=== PATIENT | male | born 1960 | race Caucasian/White ===

== ENCOUNTER 2021-08-15 19:59 | Emergency (ER) | payer BC ==
[~2021-08-15] VITALS: Ht 177.8 cm; Wt 100.0 kg
[2021-08-15] MEDS: HYDROmorphone 2 MG/ML INJ. IVP ONE (21:51)
[2021-08-15] MEDS: fentaNYL PF VIAL 100 MCG/2 ML VIAL IVP ONE (22:08)
[2021-08-15] MEDS: IV NORMAL SALINE 1000ML BAG 1,000 ML IV ONE (22:10)
--- NOTE | 2021-08-15 22:16 | RAD ---
Exam: Left shoulder 2 views INDICATION: Fall TECHNIQUE: Frontal view of the left shoulder with internal and external rotation. Comparisons: None FINDINGS: Anterior dislocation of the right shoulder. Bone mineralization is normal. No acute fractures. Soft t issues are unremarkable. IMPRESSION: Anterior dislocation at the right glenohumeral joint. Electronically signed by: Mario Mercado MD (08/15/2021 10:14 PM) FILEMON
[2021-08-15 22:17] VITALS: BP 174/82
--- NOTE | 2021-08-15 22:35 | PHYS DOC ---
General Adult EDM: Chief Complaint: SHOULDER INJURY HPI: HPI: History obtained from patient and daughter. Patient is a 60-year-old male with past medical history significant for hypertension, hyperlipidemia who presents with chief complaint of left shoulder injury. He states approximate 2 hours prior to arrival he fell at home. He notes he fell on an outstretched left arm. States he has deformity to his left shoulder and constant sharp pain. States it is worse with palpation. States it is difficult for him to move his arm due to pain. Denies numbness or tingling. Denies any his head or LOC. No medicine prior to arrival. Last ate 2 hours prior to arrival Review of Systems: Review of Systems: Constitutional: Denies fever or chills. [] Eyes: Denies change in visual acuity. [] HENT: Denies nasal congestion or sore throat. [] Respiratory: Denies cough or shortness of breath. [] Cardiovascular: Denies chest pain or edema. [] GI: Denies abdominal pain, nausea, vomiting, bloody stools or diarrhea. [] : Denies dysuria. [] Musculoskeletal: Positive for arthralgias Integument: Denies rash. [] Neurologic: Denies headache, focal weakness or sensory changes. [] Endocrine: Denies polyuria or polydipsia. [] Lymphatic: Denies swollen glands. [] Psychiatric: Denies depression or anxiety. [] Heart Score: C/O Chest Pain: No Risk Factors: Risk Factors: DM, Current or recent (<one month) smoker, HTN, HLP, family history of CAD, obesity. Risk Scores: Score 0 - 3: 2.5% MACE over next 6 weeks - Discharge Home Score 4 - 6: 20.3% MACE over next 6 weeks - Admit for Clinical Observation Score 7 - 10: 72.7% MACE over next 6 weeks - Early Invasive Strategies Current Medications: Current Medications Medications (Trade) Dose Ordered Sig/Jarod Start Time Stop Time Status Last Admin Dose Admin Fentanyl Citrate (Fentanyl 2ml Vial) 75 mcg 1X ONCE 08/15/21 22:30 08/15/21 22:31 08/15/21 22:08 75 MCG Hydromorphone HCl (Dilaudid) 1 mg 1X ONCE 08/15/21 22:00 08/15/21 22:01 DC 08/15/21 21:51 1 MG Propofol (Diprivan) 300 mg 1X ONCE 08/15/21 22:00 08/15/21 22:01 DC Sodium Chloride 1,000 ml @ 30 mls/hr 1X ONCE 08/15/21 22:00 08/17/21 07:19 08/15/21 22:10 30 MLS/HR Allergies: Allergies: Allergies Coded Allergies Type Severity Reaction Last Updated Verified No Known Drug Allergies 08/15/21 No Physical Exam: PE: Constitutional: Well developed, well nourished, no acute distress, non-toxic appearance. [] HENT: Normocephalic, atraumatic, bilateral external ears normal, oropharynx moist, no oral exudates, nose normal. [] Eyes: PERRLA, EOMI, conjunctiva normal, no discharge. [] Neck: Normal range of motion, no tenderness, supple, no stridor. [] Cardiovascular:Heart rate regular rhythm, no murmur [] Lungs & Thorax: Bilateral breath sounds clear to auscultation [] Abdomen: Bowel sounds normal, soft, no tenderness, no masses, no pulsatile masses. [] Skin: Warm, dry, no erythema, no rash. [] Back: No tenderness, no CVA tenderness. [] Extremities: Left SHOULDER: Tenderness palpation over the proximal humeral head. Obvious deformity noted. Clavicle pain is not present. Scapula without tenderness. Theres no obvious joint or bony deformity. ROM of the joints without ligamentous laxity. Pain is present with ROM. Radial head is non-tender. No overlying erythema. Neurologic: Alert and oriented X 3, normal motor function, normal sensory function, no focal deficits noted. [] Psychologic: Affect normal, judgement normal, mood normal. [] Current Patient Data: Vital Signs: Vital Signs Date Time Temp Pulse Resp B/P (MAP) Pulse Ox O2 Delivery O2 Flow Rate FiO2 08/15/21 22:08 94 Room Air 08/15/21 21:51 20 EKG: EKG: [] Radiology/Procedures: Radiology/Procedures: Indication: Left shoulder dislocation Consent: I have discussed with the patient and/or the patient sales representative [employer] the indication, alternatives, and the possible risks and /or complications of the planned procedure and the anesthesia methods. The patient and/or patient sales representative [employer] appear to understand and agree to proceed. Pre-Sedation Documentation and Exam: See moderate sedation preassessment checklist. Airway Assessment: normal. Prior History of Anesthesia Complications: none. ASA Classification: 2 Sedation/ Anesthesia Plan: Propofol Medications Used: see nursing notes. Monitoring and Safety: The patient was placed on a rib trim separator and vital signs, pulse oximetry and level of consciousness were continuously evaluated throughout the procedure. The patient was closely monitored until recovery from the medications was complete and the patient had returned to baseline status. Respiratory therapy was on standby at all times during the procedure. (The following sections must be completed) Post-Sedation Vital Signs: [EDM.VS] Post-Sedation Exam: Awake, alert, patent airway, tolerated p.o. Normal vital signs. Complications: none. [facility] [address] [facility] [place] [address] IMAGING REPORT Signed PATIENT: ROBSON GONZALES EACCOUNT: [id number] : 1960 LOCATION: ER AGE: 60 SEX: M EXAM STATUS: PRE ER ORD. PHYSICIAN: LOIS LAWTON DO REASON: fall PROCEDURE: SHOULDER 2+V LEFT Exam: Left shoulder 2 views INDICATION: Fall TECHNIQUE: Frontal view of the left shoulder with internal and external rotation. Comparisons: None FINDINGS: Anterior dislocation of the right shoulder. Bone mineralization is normal. No acute fractures. Soft tissues are unremarkable. IMPRESSION: Anterior dislocation at the right glenohumeral joint. Electronically signed by: Mario Flowers MD (08/15/2021 10:14 PM) [facility] DICTATED and SIGNED BY: MARIO FLOWERS MD DATE: 08/15/212212 Course & Med Decision Making: Course & Med Decision Making Pertinent Labs and Imaging studies reviewed. (See chart for details) [] Patient is a 60-year-old male who presents with chief complaint of fall and subsequent left shoulder injury with concern for dislocation. Initial vital signs notable for hypertension. Does have a history of high blood pressure. Exam noted above. Plain imaging confirms anterior shoulder dislocation. Procedural sedation performed with successful reduction of left shoulder dislocation. See procedure note for further details. Patient was monitored post sedation. At this time he is alert, awake, oriented. Airway is patent. Speaking a full sentence without confusion. Has tolerated p.o. Vital signs been stable. Overall I do feel he is appropriate for discharge home. Was placed in sling and swath post reduction. Given referral to orthopedic surgery for follow-up this week. Analgesia was provided for the patient. Daughter is present at bedside and can drive the patient home. Stable for discharge home. Dragon Disclaimer: Dragon Disclaimer: This electronic medical record was generated, in whole or in part, using a voice recognition dictation system. Departure Departure Impression: Primary Impression: Dislocation of shoulder, left, closed Qualified Codes: S43.005A - Unspecified dislocation of left shoulder joint, initial encounter Disposition: HOME / SELF CARE / HOMELESS Condition: GOOD Referrals: MARYBEL HUMMEL MD Patient Instructions: Shoulder Dislocation Additional Instructions: Please follow-up with orthopedic surgery this week for repeat evaluation and assessment of your left shoulder dislocation that was reduced today MODERATE SEDATION ASSESSMENT RISKS/ALTERNATIVES Risks/Alternatives Risks and alternatives of this type of sedation and procedure discussed with: RISK/ALTERNATIVES: Patient H & P ON CHART H & P H & P on chart and reviewed for co-morbid conditions and appropriate labs. H&P ON CHART: Yes STATUS PREG STATUS ASSESSED: N/A MEDS/ALLERGIES REVIEWED Meds/Allergies Reviewed Medications and Allergies including time and route of recently administered narcotics and sedatives. MEDS/ALLERGIES REVIEWED: Yes ASA RATING ASA RATING: II AIRWAY ASSESSMENT Airway Assessment Airway patency, oral function limitations, presence of caps, crowns, dentures, partials, and ability to extend neck assessed. AIRWAY ASSESSMENT: Yes MALLAMPATI SCORE MALLAMPATI SCORE: III PRE-SEDATION ASSESSMENT PRE-SEDATION ASSESSMENT: Yes LOIS LAWTON DO Aug 15, 2021 22:35
[2021-08-15] MEDS: PROPOFOL 10 MG/ML (20ML) VIAL. IV ONE (22:37)
--- NOTE | 2021-08-15 22:52 | RAD ---
Exam: Left shoulder 2 views INDICATION: Post reduction TECHNIQUE: Frontal and transscapular Y views of the right shoulder Comparisons: None FINDINGS: Improved alignment at the right shoulder. No acute fracture seen. Soft tissues are unremarkable. IMPRESSION: Improved alignment at the right glenohumeral joint. Electronically signed by: Mario Mercado MD (08/15/2021 10:50 PM) FILEMON
[2021-08-15 23:03] VITALS: BP 230/107
[2021-08-15] MEDS ORDERED: HYDR-2761 PO (23:45)
== END 2021-08-15 23:18 | disposition home or self-care (01) ==
LOC: ER 19:59
DX: S43.005A Unspecified dislocation of left shoulder joint, initial encounter (principal); I10 Essential (primary) hypertension; E78.5 Hyperlipidemia, unspecified; W18.39XA Other fall on same level, initial encounter; Y93.89 Activity, other specified; Y92.098 Other place in other non-institutional residence as the place of occurrence of the external cause; Y99.8 Other external cause status
CPT/HCPCS: 23650; 73030; 96374; 96375; 99285; A4565; J1170; J2704; J3010; J7030; 96361

== ENCOUNTER 2021-08-21 01:52 | Emergency (ER) | payer BC ==
[~2021-08-21] VITALS: Ht 177.8 cm; Wt 100.0 kg
[~2021-08-21 01:52] MED LIST: HYDR-2761 PO
[2021-08-21] MEDS ORDERED: KETAMINE HCL 500 MG/10 ML VIAL. IV ONE (02:15)
--- NOTE | 2021-08-21 02:39 | RAD ---
EXAMINATION: XR SHOULDER_LEFT 2+ VIEWS CLINICAL HISTORY: Shoulder dislocation. TECHNIQUE: XR SHOULDER_LEFT 2+ VIEWS COMPARISON: 08/15/2021 FINDINGS/ IMPRESSION: Recurrent left anterior glenohumeral dislocation. Acromioclavicular joint maintained. No definitive e vidence of acute fracture. Electronically signed by: Solo Sanchez DO (08/21/2021 2:37 AM) IVONE
--- NOTE | 2021-08-21 03:24 | PHYS DOC ---
Past Medical History Additional Past Medical Histor: SPINAL INJURY Past Surgical History: No Surgical History Additional Past Surgical Histo: CYST REMOVED FROM HIS BACK, LEFT ARM FRACTURE Smoking Status: Never Smoker Alcohol Use: None General Adult EDM: Chief Complaint: UPPER EXTREMITY PAIN HPI: HPI: Patient is a 60 year old male who presents with left shoulder dislocation. States that this recently happened to him. Was sleeping when it popped out when he rolled over onto it. Denies having any seizures. Denies urinating on himself or biting his tongue. Denies any numbness in his hands or shoulders. No other injuries noted. Review of Systems: Review of Systems: Constitutional: Denies fever or chills. [] Eyes: Denies change in visual acuity. [] HENT: Denies nasal congestion or sore throat. [] Respiratory: Denies cough or shortness of breath. [] Cardiovascular: Denies chest pain or edema. [] GI: Denies abdominal pain, nausea, vomiting, bloody stools or diarrhea. [] : Denies dysuria. [] Musculoskeletal: Denies back pain or joint pain. [] Integument: Denies rash. [] Neurologic: Denies headache, focal weakness or sensory changes. [] Endocrine: Denies polyuria or polydipsia. [] Lymphatic: Denies swollen glands. [] Psychiatric: Denies depression or anxiety. [] Heart Score: C/O Chest Pain: No Risk Factors: Risk Factors: DM, Current or recent (<one month) smoker, HTN, HLP, family history of CAD, obesity. Risk Scores: Score 0 - 3: 2.5% MACE over next 6 weeks - Discharge Home Score 4 - 6: 20.3% MACE over next 6 weeks - Admit for Clinical Observation Score 7 - 10: 72.7% MACE over next 6 weeks - Early Invasive Strategies Current Medications: Current Medications Medications (Trade) Dose Ordered Sig/Jarod Start Time Stop Time Status Last Admin Dose Admin Ketamine HCl (Ketamine) 500 mg 1X ONCE 08/21/21 02:15 08/21/21 02:17 DC Allergies: Allergies: Allergies Coded Allergies Type Severity Reaction Last Updated Verified No Known Drug Allergies 08/15/21 No Physical Exam: PE: Constitutional: Well developed, well nourished, no acute distress, non-toxic appearance. [] HENT: Normocephalic, atraumatic, bilateral external ears normal, oropharynx moist, no oral exudates, nose normal. [] Eyes: PERRLA, EOMI, conjunctiva normal, no discharge. [] Neck: Normal range of motion, no tenderness, supple, no stridor. [] Cardiovascular:Heart rate regular rhythm, no murmur [] Lungs & Thorax: Bilateral breath sounds clear to auscultation [] Abdomen: Bowel sounds normal, soft, no tenderness, no masses, no pulsatile masses. [] Skin: Warm, dry, no erythema, no rash. [] Back: No tenderness, no CVA tenderness. [] Extremities: Left shoulder displays obvious step-off, no paresthesias or numbness over the deltoid region, intact sensation and strength of the wrist and elbow, intact radial pulses in the left upper extremity as well [] Neurologic: Alert and oriented X 3, normal motor function, normal sensory function, no focal deficits noted. [] Psychologic: Affect normal, judgement normal, mood normal. [] Current Patient Data: Vital Signs: Vital Signs Date Time Temp Pulse Resp B/P (MAP) Pulse Ox O2 Delivery O2 Flow Rate FiO2 08/21/21 02:00 98.8 90 16 207/105 (139) 95 Room Air 98.8 EKG: EKG: [] Radiology/Procedures: Radiology/Procedures: [] Course & Med Decision Making: Course & Med Decision Making Pertinent Labs and Imaging studies reviewed. (See chart for details) Closed reduction of left dislocated shoulder. Successfully done with abduction and external rotation at the shoulder joint with countertraction. Intact pulses after the reduction, patient placed in a left shoulder immobilizer. He was instructed to only use it for 3 days and then remove it as this can cause frozen shoulder. He will in the meantime during those 3 days remove it on day 2 and do some shoulder rotational exercises. Patient agrees to do so and follow-up with his primary care physician. Wily Disclaimer: Wily Disclaimer: This electronic medical record was generated, in whole or in part, using a voice recognition dictation system. Procedural Sedation Proc Sed Indication: Left shoulder dislocation Consent: I have discussed with the patient and/or the patient sales representative advertising the indication, alternatives, and the possible risks and /or complications of the planned procedure and the anesthesia methods. The patient and/or patient re presentative appear to understand and agree to proceed. Pre-Sedation Documentation and Exam: Patient was placed in supine position, oxygenation is completely normal, he was placed on end-tidal CO2 monitoring with the and to suction at bedside, RT was paged and were present. Airway Assessment: normal. Prior History of Anesthesia Complications: none. ASA Classification: 2 Sedation/ Anesthesia Plan: Ketamine 1 mg/kg Medications Used: see nursing notes. Monitoring and Safety: The patient was placed on a monitoring and evaluation advisor and vital signs, pulse oximetry and level of consciousness were continuously evaluated throughout the procedure. The patient was closely monitored until recovery from the medications was complete and the patient had returned to baseline status. Respiratory therapy was on standby at all times during the procedure. (The following sections must be completed) Post-Sedation Vital Signs: Heart rate 111, blood pressure 190/110 Post-Sedation Exam: AAO*3. Ambulatroy, able to tolerate PO intake Complications: none. Vital Signs Vital Signs Date Time Temp Pulse Resp B/P (MAP) Pulse Ox O2 Delivery O2 Flow Rate FiO2 08/21/21 02:00 98.8 90 16 207/105 (139) 95 Room Air 98.8 Departure Departure Impression: Primary Impression: Anterior dislocation of left shoulder Disposition: 01 HOME / SELF CARE / HOMELESS Condition: IMPROVED Referrals: UNKNOWN PCP NAME (PCP) Patient Instructions: Shoulder Dislocation, [id number] Additional Instructions: Please use the sling only for 3 days. Please follow the frozen shoulder precautions I instructed you on VIRIDIANA GOMEZ MD Aug 21, 2021 03:24
--- NOTE | 2021-08-21 03:35 | RAD ---
EXAMINATION: XR SHOULDER_LEFT 2+ VIEWS CLINICAL HISTORY: Left glenohumeral dislocation status post reduction. TECHNIQUE: XR SHOULDER_LEFT 2+ VIEWS COMPARISON: 09/10/2021 2:20 AM FINDINGS/ IMPRESSION: [facility]ist of normal anatomic alignment in the glenohumeral joint status post interval reduction. No definite evidence of acute fracture. Electronically signed by: Solo Sanchez DO (08/21/2021 3:32 AM) IVONE
[2021-08-21 04:03] VITALS: BP 199/108
== END 2021-08-21 04:43 | disposition home or self-care (01) ==
LOC: ER 01:52
DX: S43.015A Anterior dislocation of left humerus, initial encounter (principal); X50.9XXA Other and unspecified overexertion or strenuous movements or postures, initial encounter; Y93.89 Activity, other specified; Y92.89 Other specified places as the place of occurrence of the external cause; Y99.8 Other external cause status
CPT/HCPCS: 23650; 73030; 99151; 99285; J3490

== ENCOUNTER → 2021-09-20 | Outpatient (CLI) | payer BC ==
[2021-08-21 04:03] VITALS: BP 199/108
[~2021-09-20] MED LIST changes: +GADOTERATE 5 MMOL/10ML VIAL. INT ART ONE; +IOHEXOL 300 MG/ML 50 ML VIAL. INT ART ONE; +LIDOCAINE 1% Multi-Dose 20 ML VIAL. ID ONE; +LISI2.5T12 PO; +METO-239 PO; +TRAM50TA PO
--- NOTE | 2021-09-20 16:39 | KCIC ---
Exam Date: 09/20/2021 1:40 PM MRI LEFT UPPER EXTREMITY JOINT WITH IV CONTRAST Indication: Reason: Tear glenoid labrum, recurrent dislocations, joint instability. / Spl. Instructio ns: / History: Pt. fell July 2021. Left shoulder pain and LROM.. MR ARTHROGRAM LEFT SHOULDER WITH CONTRAST TECHNIQUE: Multiplanar MR imaging of the shoulder was performed following the intra-articular injecti on of both iodinated contrast and dilute gadolinium contrast. The fluorscopic-guided shoulder injec tion procedure is reported separately. FINDINGS: Motion artifact significantly limits evaluation. The anterior inferior labrum is torn and detached consistent with a Bankart lesion. There is an impa ction fracture of the posterolateral humeral head consistent with a Hill-Sachs lesion, without signif icant marrow edema, consistent with chronic fracture. There is partial thickness articular sided tearing involving the subscapularis tendon with medial sub luxation/dislocation of the long head of the biceps tendon which is otherwise intact. There is a large full-thickness tear of the supraspinatus tendon with retraction to the top of the hu meral head. Infraspinatus and teres minor tendons are intact. Rotator cuff musculature demonstrates normal signal and bulk. Moderate degenerative changes are seen at the AC joint. There is an intact type II acromion. There is large extension of contrast into the subacromial/subdeltoid bursa secondary to full-thickness rota tor cuff tendon tear described above. Moderate degenerative changes are seen at the glenohumeral joint. Bone marrow demonstrates benign si gnal on all sequences without acute fracture. IMPRESSION: Evidence of prior glenohumeral joint dislocation, with torn and detached anterior inferior labrum (Ba nkart lesion) and chronic impaction fracture of the posterolateral humeral head (Hill-Sachs lesion). Large full-thickness tear of the supraspinatus tendon with retraction. Partial thickness articular sided tearing of the subscapularis tendon with medial subluxation/disloca tion of an otherwise intact long head of the biceps tendon. Electronically signed by: Aashish Argueta MD (09/20/2021 4:37 PM) [id number]
--- NOTE | 2021-09-21 13:39 | KCIC ---
Exam Date: 09/20/2021 1:15 PM DG ARTHROGRAM SHOULDER LEFT Indication: Reason: Tear glenoid labrum, recurrent dislocations, joint instability. / Spl. Instructio ns: 20mL Saline, 0.2mL Clariscan, 8mL Omni 300, 8 sec fl, 3 images. / History: Pt. fell July 2021.. LEFT SHOULDER FLUOROSCOPIC GUIDED NEEDLE PLACEMENT AND IODINATED CONTRAST AND DILUTE GADOLINIUM CONTR AST INJECTION FOR MR ARTHROGRAM WITH CONTRAST PROCEDURE: A timeout was performed to ensure that the patient's name and procedure matched our infor mation. After the risks, benefits, personnel, and alternatives to the procedure were discussed with t he patient, the patient elected to proceed and signed the consent form. Under fluoroscopic evaluation , a suitable target was selected and the overlying skin was marked. The patient was prepped and drape d in the usual sterile fashion. Local anesthesia with 5.0 cc of lidocaine was given. Under fluoroscop ic guidance, a 20 gauge spinal needle was inserted through the anesthetized track into the LEFT shoul anjana joint. Intra-articular location was confirmed by a test injection of 0.25 cc of iodinated contras t. The joint was then injected with 12 cc of a dilute gadolinium solution (2:200 gadolinium:saline). Total fluoroscopy time: 8 seconds Fluoroscopic images: 0 The patient tolerated the procedure very well without any immediate adverse consequence. Spot images demonstrate successful injection of the joint. IMPRESSION: Successful fluoroscopic guided needle placement and injection of both iodinated contrast and dilute gadolinium contrast into the LEFT shoulder joint for MR shoulder arthrogram with contrast . Electronically signed by: Aashish Argueta MD (09/21/2021 1:36 PM) [id number]
== END | disposition home or self-care (01) ==
LOC: KCIC 12:46
PROVIDERS: ATTEND Physician Assistant
DX: M25.312 Other instability, left shoulder (principal); S43.432A Superior glenoid labrum lesion of left shoulder, initial encounter; M24.412 Recurrent dislocation, left shoulder; Z79.899 Other long term (current) drug therapy; X58.XXXA Exposure to other specified factors, initial encounter; Y93.89 Activity, other specified; Y92.89 Other specified places as the place of occurrence of the external cause; Y99.8 Other external cause status
CPT/HCPCS: 23350; 73222; 77002; A9575; J3490; Q9967

== ENCOUNTER → 2021-10-15 | Outpatient (CLI) | payer BC ==
[~2021-10-15] MED LIST changes: +ATOR20TA58 PO; -GADOTERATE 5 MMOL/10ML VIAL. INT ART ONE; -IOHEXOL 300 MG/ML 50 ML VIAL. INT ART ONE; -LIDOCAINE 1% Multi-Dose 20 ML VIAL. ID ONE; +MELO15TA23 PO; +OXYC-325 PO; +TIZA-75 PO
== END ==
LOC: LAB 10:29
PROVIDERS: ATTEND Orthopaedic Surgery Sports Medicine
DX: Z01.812 Encounter for preprocedural laboratory examination (principal); Z20.822 Contact with and (suspected) exposure to COVID-19
CPT/HCPCS: U0003

== ENCOUNTER 2021-10-19 06:10 | Day surgery (SDC) | payer BC ==
[~2021-10-19] VITALS: Ht 177.8 cm; Wt 102.2 kg
[~2021-10-19 06:10] MED LIST changes: +HYDROmorphone 2 MG/ML INJ. IVP PRN; +IV RINGERS,LACTATED 1000ML 1,000 ML IV SCH; +MORPHINE SULFATE 2 MG/ML INJ. IVP PRN; -OXYC-325 PO; +PROCHLORPERAZINE 10 MG/2 ML VIAL. IVP PRN; +fentaNYL PF VIAL 100 MCG/2 ML VIAL IVP PRN
[2021-10-19 06:45] VITALS: BP 180/97
[2021-10-19] MEDS ORDERED: SEVOFLURANE > 120 MINUTES. IH ONE (06:53)
[2021-10-19] MEDS ORDERED: DEXAMETHASONE SOD PHOS 4 MG/ML VIAL ONE ×2 (06:53→07:40)
[2021-10-19] MEDS ORDERED: PROPOFOL 10 MG/ML (20ML) VIAL. IV ONE (06:53)
[2021-10-19] MEDS ORDERED: ONDANSETRON PF 4 MG/2 ML VIAL. ONE (06:53)
[2021-10-19] MEDS ORDERED: ROCURONIUM 50 MG/5 ML VIAL. ONE (06:53)
[2021-10-19] MEDS ORDERED: NEOSTIGMINE METHYLSULFATE 5 MG/5 ML SYRINGE. ONE (06:53)
[2021-10-19] MEDS ORDERED: LIDOCAINE 2% PF 5 ML VIAL. ONE (06:53)
[2021-10-19] MEDS ORDERED: GLYCOPYRROLATE 1 MG/5 ML VIAL. ONE (06:54)
[2021-10-19] MEDS ORDERED: fentaNYL PF VIAL 100 MCG/2 ML VIAL ONE ×2 (06:54→11:10)
[2021-10-19] MEDS ORDERED: PHENYLEPHRINE in 0.9% NACL PF 1 MG/10 ML SYRINGE. IV ONE (06:54)
[2021-10-19] MEDS ORDERED: BUPIVACAINE MPF 0.5% 30 ML VIAL. ONE (07:08)
[2021-10-19] MEDS ORDERED: EPINEPHrine VIAL 30 MG/30 ML VIAL ONE (07:08)
[2021-10-19] MEDS ORDERED: LIDOCAINE 1% PF 30 ML VIAL. ONE (07:08)
[2021-10-19] MEDS ORDERED: MIDAZOLAM HCL/PF 2 MG/2 ML VIAL. ONE (07:36)
[2021-10-19] MEDS ORDERED: ROPIVacaine 0.5% PF 20 ML VIAL. ONE (07:40)
[2021-10-19] MEDS ORDERED: LIDOCAINE 1% PF 2 ML VIAL. ONE (07:40)
[2021-10-19] MEDS ORDERED: HYDROmorphone 2 MG/ML INJ. ONE (09:44)
[2021-10-19] MEDS ORDERED: OXYC-325 PO (10:24)
--- NOTE | 2021-10-19 10:25 | DISCH ---
DISCHARGE INSTRUCTIONS Condition on Discharge Condition on Discharge: Stable Activity After Discharge Activity Instructions for Disc: Other, see below Other activity instructions: Arm to remain in sling Bathing Instructions: Shower-keep dressing dry Weight Bearing Status after Di: Non weight bearing Diet after Discharge Diet after Discharge: Regular Wound Incision Care Wound/Incision Care: Ice to area for comfort, Keep wound/cast CDI, Change dressing Other wound/incision instructi: Change dressing after [address] after DC Call your doctor for: Concerns you may have Follow-Up Follow up with: Surgeon in 2 weeks ADONIS GROSSMAN II, MD October 19, 2021 10:25
--- NOTE | 2021-10-19 10:37 | PDOC4 ---
Operative Note Operative Note Date of procedure: 10/19/2021 Surgeon: Alan Grossman Time Lock Expert: Arnulfo Kat Pre-op diagnosis #1 left shoulder rotator cuff tear 2. Left shoulder Bankart tear 3. Left shoulder Hill-Sachs lesion Postoperative diagnosis: Same Procedure performed: #1 arthroscopic left shoulder rotator cuff repair 2. Open subpectoral biceps tenodesis 3. Glenohumeral debridement Anesthesia: General plus regional nerve block Blood loss: 25 mL Complications: None Findings: #1 patient had a tear at the upper border of subscapularis supraspinatus and leading portion of infraspinatus Remainder of rotator cuff intact Patient had a 15 mm in length segment of anterior labrum that was very friable and calcified and tore free, still attached at its inferior portion Labrum was unremarkable otherwise other than degenerative fraying Patient had normal-appearing humeral head cartilage Patient had softening and grade 2-3 changes anteriorly at his glenoid No loose bodies flattened appearing biceps tendon with longitudinal split Components inserted: [employer] helicoil anchors x3, footprint for lateral row fixation, 1.9 mm suture fix dual loaded anchor for biceps tenodesis Reason for procedure: Patient is a very pleasant 61-year-old gentleman who had been referred to my outpatient clinic after a shoulder injury.'s please see my consult note for further details. He and I had a discussion of the risk benefits and alternatives to the above surgery and he wished to proceed. Description procedure: Patient was greeted in the preoperative area by myself or the correct extremity was verified and marked. Is taken to the operative suite and antibiotics were started as he was brought back. Once in the operating, transferred gently spine to the operating table and secured to bed with all pressure points padded, and had successful induction of a general anesthetic, as we set him up in a beachchair position maintaining C-spine in neutral position. He had a large pillow under his legs. Left upper extremity examination under anesthesia have been conducted with him supine on the recovery room cart prior t o treatment moving him. [id number] was 1 posterior, 2 anterior, full range of motion in all planes. After the examination and placing him in the beachchair position, he was prepped and draped in our usual sterile fashion including Ioban at the periphery. I palpated marked surface anatomy and christi lines for my planned incisions. I then used a spinal to localize a posterior s uperior portal and incised skin accordance with this and then introduced the blunt arthroscopic trocar followed by the camera into the glenohumeral joint and used a spinal to localize an anterosuperior portal, incising skin accordance with this. I then introduced the probe and conducted my diagnostic arthroscopy with above-noted findings. Upon maximal external rotation, the Hill-Sachs lesion did not engage. Given his biceps pathology and the tear at the subscapularis, they elected to remove the arthroscopic instrumentation and made an incision referencing his inferior border of his pectoralis major, I dissected subcutaneous tissue electrocautery and then bluntly developed the plane underneath the pectoralis major, placing a 90 degree retractor over top of the humerus. Identified the bicipital sheath and open this, I then identified the biceps tendon and clamped it with a hemostat I then placed my suture anchor into the proximal humerus region at the biceps tendon and then used a [employer] to pass the sutures through in a lasso configuration and tied them down securely. I then cut the biceps tendon with a scalpel between my suture knots and the hemostat. I then removed the instrumentation and reposition the arm, I reintroduced the camera into the glenohumeral joint and continued on with the this portion of the surgery. I noted the degenerative changes at his anterior glenoid, I used a regular grasper at the labrum, this tissue was so friable and appeared to have some areas of calcification and it that there was no reason I think it would hold suture material. After this I used Metzenbaum scissors to cut the biceps tendon at the superior portion of the labrum and deliver the biceps tendon from a subpectoral incision. After this I inspected the rotator cuff tear from the subacromial vantage point, as I had reposition the camera. I used a spinal to localize a lateral portal and incised skin accordance with this and dilated this hole. I then performed a bursectomy and debrided the rotator cuff footprint and leading edge of the tear with shaver, using some electrocautery for the bursectomy portion as well. After this, I reposition the arm and placed the trocar at the lateral portal. I used a spinal needle to localize accessory anterolateral and posterolateral portals. With the arm in external rotation and forward elevation I was able to place an anchor at the greater tuberosity region. I then placed 2 more at the rotator cuff footprint superiorly. I then used the first pass device to shuttle all the suture limbs through a simple configuration and tied them down using arthroscopic knot tying techniques saving for sutures from the anteriormost anchors to incorporate my lateral row. I impacted my footprint anchor into position securing the single limbs from the sutures. I then cut these as well. The rotator cuff tissue felt sepulveda. Upon gentle rotation and manipulation of the arm, I noted no gapping or separation of my repair. After this, removed all loose debris and the excess arthroscopic fluid. I reposition the camera into the joint and perform my debridement around the labrum. After the start of all excess arthroscopic fluid and the arthroscopic instrumentation from the glenohumeral joint. Portals were closed with simple interrupted 3-0 nylon. Inverted interrupted 2-0 Vicryl was used for subcutaneous tissue at the subpectoral incision followed by running 3-0 Monocryl in a buried subcuticular fashion. Prior to wound closure all counts correct x2. No complications. Patient tolerated surgery well. At the conclusion, the arm was cleansed and dried and a sterile bulky dressing was applied followed by an abduction pillow sling. The patient was laid supine and transferred on spine to the recovery cart and taken to PACU in stable and extubated condition. Postoperative plan is to discharge patient home, nonweightbearing left upper extremity. I will see him back in 2 weeks and we will get him started on physical therapy. ALAN GROSSMAN II, MD October 19, 2021 10:37
[2021-10-19] MEDS: fentaNYL PF VIAL 100 MCG/2 ML VIAL IVP PRN ×2 (11:14→12:12)
[2021-10-19] MEDS ORDERED: oxyCODONE/APAP 5/325 1 TAB TABLET PO ONE (11:15)
[2021-10-19] MEDS ORDERED: LABETALOL 20 MG/4 ML DISP.SYRIN. IVP ONE (11:18)
[2021-10-19] MEDS: LABETALOL 20 MG/4 ML DISP.SYRIN. IVP PRN ×4 (11:26→12:15)
[2021-10-19 12:28] VITALS: BP 166/85
== END 2021-10-19 13:40 | disposition home or self-care (01) ==
LOC: SURG 06:10
PROVIDERS: ATTEND Orthopaedic Surgery Sports Medicine
DX: M75.102 Unspecified rotator cuff tear or rupture of left shoulder, not specified as traumatic (principal); S46.012A Strain of muscle(s) and tendon(s) of the rotator cuff of left shoulder, initial encounter; I10 Essential (primary) hypertension; E78.00 Pure hypercholesterolemia, unspecified; Z79.899 Other long term (current) drug therapy; Z98.890 Other specified postprocedural states; Z72.89 Other problems related to lifestyle; X58.XXXA Exposure to other specified factors, initial encounter; Y93.89 Activity, other specified; Y92.89 Other specified places as the place of occurrence of the external cause; Y99.8 Other external cause status
CPT/HCPCS: 29827; 29828; 64415; A4213; A4355; A4928; A4930; A6253; C1713; J0171; J0690; J1100; J1170; J2250; J2370; J2405; J2704; J2710; J2795; J3010; J3490; A4452